=== PATIENT | female | born 1970 | race Caucasian/White ===

== ENCOUNTER 2018-07-25 07:35 | Day surgery (SDC) | payer OTHER ==
[~2018-07-25 07:35] MED LIST: LIPITOR20 MG PO; ZESTRIL5 MG PO
== END 2018-07-25 21:10 | disposition home or self-care (01) ==
LOC: CIR.AMB 07:35
DX: N84.0 Polyp of corpus uteri (principal)

== ENCOUNTER 2018-07-29 16:50 | Emergency (ER) | payer OTHER ==
[~2018-07-29] VITALS: Ht 152.4 cm; Wt 40.8 kg
== END 2018-07-29 19:36 | disposition home or self-care (01) ==
LOC: ER 16:50
DX: R51 Headache (principal)